=== PATIENT | male | born 1970 | race Caucasian/White ===

== ENCOUNTER 2024-03-10 18:31 | Emergency (ER) | payer SELFPAY ==
--- OUTSIDE RECORDS SUMMARY | 2024-03-10 18:34 | XMS REPORT | Continuity of Care Document ---
Author Name Unknown Address [address] [facility] [address] [place] [address] [facility] thconnect Address [address] [facility] 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 Pcp, Patient Does Not Have A Primary Care Physic hung Kimberly Lundy MD Attending Clinician [phone] KIMBERLY LUNDY Attending Clinician Unavailable MIKE FUENTES Attending Clinician Unav Mike Reyez MD Attending Clinician + ABBI MOHAN Attending Clinician Unavailab Abbi Lopez DO Attending Clinician [phone] Jorge Lao Attending Clinician Unavailable Tim Juarez Attending Clinician Unavailable Tim Juarez Attending Clinician [phone] Jorge Lao Attending Clinician [phone] KIMBERLY LUNDY Admitting Clinician Unavailable ABBI MOHAN Admitting Clinician Unavailab dieudonne Payers Payer Name Policy Type Policy Number Effective Date Expirati on Date Source Allergies, Adverse Reactions, Alerts Allergy Name Allergy Type Status Severity Reaction(s) Onset Date Inactive Date Treating Clinician Comments Source NO KNOWN ALLERGIE S Drug Class Active [facility] Family History Family Member Diagnosis Comments Start Date Stop Date Sour e Father Family history of cancer of colon 2016-11-20 00:00:00 2016-11-20 00:00:00 [facility] Father Diabetes mellitus 2016-11-20 00:00:00 2016-11-20 00:00:00 [facility] Mother Family history of raised blood lipids 2016-11-20 00:00:00 2016-11-20 00:00:00 [facility] Social History Social Habit Start Date Stop Date Quantity Comments Source Alcohol intake 2021-09-22 00:00:00 hard liquor 1 drink occasionally [facility] Health-related behavior (observable entity) 2021-09-22 00:00:00 soda, 32 oz [facility] Tobacco use and exposure 2021-09-22 00:00:00 Cigarette: Age Started: 18, Years Used 25 Quantity Details - Cigarette: 20 Cigarettes per day, Pack Year: 25 [facility] identity Univ [facility] Sex Assigned At 1970 00:00:00 1970 00:00:00 [facility] Smoking Status Start Date Stop Date Source Tobacco smoking consumption unknown [facility] Medications Ordered Medication Name Filled Medication Name Start Date Stop Date Current Medication? Ordering Clinician Indication Dosage Frequency Signature (SIG) Comments Components Source gabapentin 300 mg capsule 06-30 00:00: 00 Yes [id number] 300mg Take 1 capsule by mouth in the morning and 1 capsule at noon and 1 capsule in the evening. [facility] cephALEXin 500 mg capsule 06-30 00:00: 00 07-08 04:59 :00 No [id number] 500mg Take 1 capsule by mouth in the morning and 1 capsule at noon and 1 capsule in the evening. Do all this for 7 days. [facility] ketamine (KETALAR) injection 90 mg 10-22 14:30: 00 10-22 14:50 :00 No 90mg 90 mg, Slow IV Push, ONCE, 1 dose, On Wed10/22/22 at 0930, VALERIE [facility] ketorolac (TORADOL) injection 30 mg 10-22 14:30: 00 10-22 13:44 :00 No 30mg 30 mg, Slow IV Push, ONCE, 1 dose, On Wed10/22/22 at 0930, Routine [facility] FENTanyl PF (SUBLIMAZE (PF)) injection 50 mcg 10-22 14:00: 00 10-22 13:16 :00 No 50ug 50 mcg, Slow IV Push, ONCE, 1 dose, On Mary Jo 10/22/22 at 0900, Routine [facility] DESCOVY 200-25MG TAB 9-06 00:00: 00 No TAKE ONE TABLET BY MOUTH DAILY [Pat Resp = 100 pct;] [facility] Descovy 200 mg-25 mg tablet - 00:00: 00 No 1{table t} Q1D take 1 tablet by oral route every day [Pat Resp = 100 pct;] [facility] Descovy 200 mg-25 mg tablet 1-05 00:00: 00 09-22 00:00 :00 No 1{table t} Q1D take 1 tablet by oral route every day [facility] Vital Signs Vital Name Observation Time Observation Value Comments S ource Oxygen saturation in Arterial blood by Pulse oximetry 2023-07-01 18:56:00 100 /min [facility] acute hospital Systolic blood pressure 2023-07-01 18:56:00 161 mm[Hg] [facility] acute hospital Diastolic blood pressure 2023-07-01 18:56:00 93 mm[Hg] [facility] acute hospital Heart rate 2023-07-01 18:56:00 97 /min [facility] Body temperature 2023-07-01 18:56:00 36.72 Caroline [facility] Respiratory rate 2023-07-01 18:56:00 16 /min [facility] Body height 2023-07-01 18:56:00 190.5 cm [facility] Body weight 2023-07-01 18:56:00 102.059 kg [facility] BMI 2023-07-01 18:56:00 28.12 kg/m2 [facility] Systolic blood pressure 2022-11-17 13:06:00 133 mm[Hg] General acute hospital Diastolic blood pressure 2022-11-17 13:06:00 74 mm[Hg] General acute hospital Heart rate 2022-11-17 13:06:00 76 /min [facility] 2022-11-17 13:06:00 36 Caroline [facility] Body height 2022-11-17 13:06:00 190.5 cm [facility] weight 2022-11-17 13:06:00 101.016 kg [facility] BMI 2022-11-17 13:06:00 27.84 kg/m2 Univ [facility] Systolic blood pressure 2022-11-03 19:18:00 143 mm[Hg] General acute hospital Diastolic blood pressure 2022-11-03 19:18:00 73 mm[Hg] General acute hospital Heart rate 2022-11-03 19:18:00 102 /min [facility] Body temperature 2022-11-03 19:18:00 36.22 Caroline [facility] Body height 2022-11-03 19:18:00 190.5 cm [facility] Body weight 2022-11-03 19:18:00 97.523 kg [facility] BMI 2022-11-03 19:18:00 26.87 kg/m2 Univ [facility] Systolic blood pressure 2022-10-22 16:45:00 145 mm[Hg] General acute hospital Diastolic blood pressure 2022-10-22 16:45:00 80 mm[Hg] General acute hospital Heart rate 2022-10-22 16:45:00 65 /min [facility] Oxygen saturation in Arterial blood by Pulse oximetry 2022-10-22 16:45:00 100 /min General acute hospital Respiratory rate 2022-10-22 16:00:00 12 /min [facility] Body temperature 2022-10-22 15:08:00 36.83 Caroline [facility] Body height 2022-10-22 13:03:00 190.5 cm [facility] Body weight 2022-10-22 13:03:00 95.255 kg [facility] BMI 2022-10-22 13:03:00 26.25 kg/m2 [facility] Body height 2021-09-22 10:41:00 190.50 cm [facility] Body Weight 2021-09-22 10:41:00 110.132 kg [facility] Intravascular Systolic 2021-09-22 10:41:00 113 mm[Hg] [facility] Intravascular Diastolic 2021-09-22 10:41:00 70 mm[Hg] [facility] Heart Rate 2021-09-22 10:41:00 69 /min [facility] Body Temperature 2021-09-22 10:41:00 36.44 Caroline [facility] Respiratory rate 2021-09-22 10:41:00 12 /min [facility] Body mass index 2021-09-22 10:41:00 30.35 kg/m2 [facility] SaO2 % BldA PulseOx 2021-09-22 10:41:00 98 /min [facility] Procedures Procedure Date / Time Performed Performing Clinician Source MAGNESIUM 2023-07-01 20:33:00 Kamron Kimberly [facility] TROPONIN I 2023-07-01 20:33:00 Kamron Kimberly [facility] FREE T4 2023-07-01 20:33:00 [facility] THYROID STIMULATING HORMONE 2023-07-01 20:33[facility]00 [facility] COMP. METABOLIC PANEL ([id number]) 2023-07-01 20:33:00 [facility] CBC WITH DIFF 2023-07-01 20:33:00 Kamron Kimberly [facility] GLYCOSYLATED HEMOGLOBIN (A1C) 2023-07-01 20:33:00 [facility] N-TERMINAL PRO-BNP 2023-07-01 20:33:00 [facility] XR WRIST 3+ VW LEFT 2022-11-17 13:18:14 Mike Fuentes [facility] XR WRIST 3+ VW LEFT 2022-11-03 19:26:49 Mike Fuentes [facility] [place] APPLICATION SHORT ARM SPLINT FOREARM-HAND STATIC 2022-10-22 16:11:31 Abbi Mohan [facility] ED ORTHOPEDIC INJURY TREATMENT - UPPER EXTREMITY 2022-10-22 16:10:30 Abbi Mohan [facility] XR WRIST 3+ VW LEFT 2022-10-22 15:23:45 Yamilet Mohan ra [facility] MODERATE SEDATION 2022-10-22 15:05:03 Abbi Mohan [facility] XR WRIST 3+ VW LEFT 2022-10-22 13:58:00 Yamilet Mohan ra [facility] NOTICE OF PRIVACY PRACTICES 2022-10-22 12:58:35 Doctor Unassigned, [place] [facility] CONSENT/REFUSAL FOR DIAGNOSIS AND TREATMENT 2022-10-22 12:58:08 Doctor Unassigned, [place] [facility] Established Patient Office Visit-Level Three 2021-09-22 00:00:00 [facility] Imm Admin COVID19 30mcg/0.3mL Booster Dosage 2021-09-22 00:00:00 [facility] COVID-19 Pfizer 30 Mcg/0.3mL Dosage 2021-09-22 00:00:00 [facility] Syphilis Test, qualitative 2021-09-22 00:00:00 [facility] HIV-1 antigen(s), HIV-1 and HIV-2 antibodies, single result 2021-09-22 00:00:00 [facility] Basic Metabolic Panel 2021-09-22 00:00:00 [facility] Hepatitis Panel - Acute 2021-09-22 00:00:00 [facility] Chylmd Trach DNA Amp Probe 2021-09-22 00:00:00 [facility] N.Gonorrhea DNA Amp Prob 2021-09-22 00:00:00 [facility] STI Clinic Charge 2020-07-24 00:00:00 [facility] Zithromax 250mg State X4 2020-07-24 00:00:00 [facility] Established Patient Office Visit-Level Three 2020-03-19 00:00:00 [facility] Chylmd Trach DNA Amp Probe 2020-03-19 00:00:00 [facility] N.Gonorrhea DNA Amp Prob 2020-03-19 00:00:00 [facility] Syphilis Test, qualitative 2020-03-19 00:00:00 [facility] HIV-1 Ag/Ab With Reflex 2020-03-19 00:00:00 [facility] Comprehensive Metabolic Panel 2020-03-19 00:00:00 [facility] STI Clinic Charge 2020-01-17 00:00:00 [facility] Zithromax 250mg State X4 2020-01-17 00:00:00 [facility] Rocephin injection per 250mg (state supplied) 2020-01-17 00:00:00 [facility] Syphilis Test, qualitative 2019-12-28 00:00:00 [facility] HIV-1 Ag/Ab With Reflex 2019-12-28 00:00:00 [facility] Comprehensive Metabolic Panel 2019-12-28 00:00:00 [facility] Hepatitis Panel - Acute 2019-12-28 00:00:00 [facility] Established Patient Office Visit-Level Three 2019-12-28 00:00:00 [facility] Established Patient Office Visit-Level Three 2019-07-11 00:00:00 [facility] Urinalysis, Auto W/O Scope 2019-04-12 00:00:00 [facility] Established Patient Office Visit-Level Three 2019-04-12 00:00:00 [facility] Chylmd Trach DNA Amp Probe 2019-04-12 00:00:00 [facility] N.Gonorrhea DNA Amp Prob 2019-04-12 00:00:00 [facility] HIV-1 AG W/HIV-1 & HIV-2 AB 2019-04-12 00:00:00 [facility] Comprehensive Metabolic Panel 2019-04-12 00:00:00 [facility] Established Patient Office Visit-Level Three 2018-12-22 00:00:00 [facility] Urinalysis, Auto W/O Scope 2018-12-22 00:00:00 [facility] HIV-1 AG W/HIV-1 & HIV-2 AB 2018-12-22 00:00:00 [facility] Comprehensive Metabolic Panel 2018-12-22 00:00:00 [facility] Urinalysis, Auto W/O Scope 2018-09-22 00:00:00 [facility] Established Patient Office Visit-Level Three 2018-09-22 00:00:00 [facility] HIV-1 AG W/HIV-1 & HIV-2 AB 2018-09-22 00:00:00 [facility] Comprehensive Metabolic Panel 2018-09-22 00:00:00 [facility] Hepatitis Panel - Acute 2018-09-22 00:00:00 [facility] Urinalysis, Auto W/O Scope 2018-02-28 00:00:00 [facility] Established Patient Office Visit-Level Three 2018-02-28 00:00:00 [facility] HIV-1 AG W/HIV-1 & HIV-2 AB 2018-02-28 00:00:00 [facility] Comprehensive Metabolic Panel 2018-02-28 00:00:00 [facility] Zithromax 250mg State X4 2017-12-06 00:00:00 [facility] Established Patient Office Visit-Level Three 2017-12-06 00:00:00 [facility] HIV-1 AG W/HIV-1 & HIV-2 AB 2017-12-06 00:00:00 [facility] Comprehensive Metabolic Panel 2017-12-06 00:00:00 [facility] Complete Blood Count (CBC) 2017-09-01 00:00:00 [facility] Hepatic Function Panel 2017-09-01 00:00:00 [facility] ASSAY OF GGT 2017-09-01 00:00:00 [facility] LDH (Lactate Dehydrogenase) 2017-09-01 00:00:00 [facility] Urinalysis, Auto W/O Scope 2017-09-01 00:00:00 [facility] Established Patient Office Visit-Level Three 2017-09-01 00:00:00 [facility] Established Patient Office Visit-Level Three 2017-06-28 00:00:00 [facility] Complete Blood Count (CBC) 2017-06-28 00:00:00 [facility] Urinalysis, Auto W/O Scope 2017-06-28 00:00:00 [facility] Established Patient Office Visit-Level Three 2017-02-22 00:00:00 [facility] HIV-1 AG W/HIV-1 & HIV-2 AB 2017-02-22 00:00:00 [facility] Comprehensive Metabolic Panel 2016-12-26 00:00:00 [facility] Urinalysis, Auto W/O Scope 2016-12-26 00:00:00 [facility] Established Patient Office Visit-Level Three 2016-12-26 00:00:00 [facility] Comprehensive Metabolic Panel 2016-11-20 00:00:00 [facility] Urinalysis, Auto W/O Scope 2016-11-20 00:00:00 [facility] New Patient Office Visit-Level Two 2016-11-20 00:00:00 [facility] Encounters Start Date/Time End Date/Time Encounter Type Admission Type Attending [facility] Care Department Encounter ID Source 2023-07-06 00:00:00 2023-07-06 00:00:00 Letter (Out) [facility] [id number] [facility] 2023-07-01 14:01:00 2023-07-01 17:44:00 Emergency Kimberly Lundy [facility] [id number] [id number] [id number] [id number] [facility] 2023-07-01 14:01:00 2023-07-01 17:44:00 Emergency X KIMBERLY LUNDY [facility] ERT [id number] [facility] 2022-11-17 08:12:06 2022-11-17 23:59:00 Outpatient R MIKE FUENTES [facility] [id number] [facility] 2022-11-17 08:10:00 2022-11-17 23:59:00 Hospital Encounter Mike Fuentes Hieu [facility] [id number] [id number] [facility] 2022-11-17 08:45:00 2022-11-17 08:53:46 Office Visit Mike Fuentes [facility] [id number] [id number] [facility] 2022-11-17 00:00:00 2022-11-17 00:00:00 Letter (Out) Latesha Mike [facility] [id number] 4.2.7.2.686 [id number] [facility] 2022-11-03 14:21:01 2022-11-03 23:59:00 Hospital Encounter Mike Fuentes [facility] [id number] [id number] [facility] 2022-11-03 14:00:00 2022-11-03 15:22:43 Outpatient R MIKE FUENTES [facility] [id number] [facility] 2022-11-03 14:00:00 2022-11-03 15:22:43 Office Visit Mike Fuentes [facility] [id number] [id number] 4.2.7.2.686 [id number] [facility] 2022-10-22 08:04:00 2022-10-22 12:00:00 Emergency X ABBI MOHAN [facility] ERT [id number] [facility] 2022-10-22 08:04:00 2022-10-22 12:00:00 Emergency Abbi Mohan [facility] [id number] [id number] [facility] 2022-03-18 00:00:00 2022-03-18 00:00:00 Outpatient Jorge Lao [place] [id number] [facility] 2021-11-18 14:29:00 2021-11-18 14:29:[address] [facility] [id number] 2021-11-18 14:29:00 2021-11-18 14:29:00 Outpatient Delvin Juarezson [place] [id number] [facility] 2021-09-25 07:42:00 2021-09-25 07:42:[address] [facility] [id number] [facility] 2021-09-25 07:42:00 2021-09-25 07:42:00 Outpatient Nilejosiane Tim [place] [id number] [facility] 2021-09-22 10:20:00 2021-09-22 10:20:00 Outpatient Delvin Juarezson [facility] [id number] [facility] 2021-09-22 10:20:00 2021-09-22 10:20:00 Sukumar billingsley Patient Office Visit-Chalo Frazier Nilejosiane Tim [place] [id number] [facility] 2020-07-24 00:00:00 2020-07-24 00:00:00 Outpatient Jorge Lao [place] CHW [id number] [facility] 2020-07-24 00:00:00 2020-07-24 00:00:00 Outpatient Jorge Lao [place] [id number] [facility] 2020-03-29 12:12:00 2020-03-29 12:12:[address] [facility] [id number] [facility] 2020-03-20 07:48:00 2020-03-20 07:48:00 Outpatient Delvin Juarezson [place] W [id number] [facility] 2020-03-19 13:00:00 2020-03-19 13:00:00 Outpatient Larry Tim [facility] [id number] [facility] 2020-03-19 13:00:00 2020-03-19 13:00:00 Establishyashira billingsley Patient Office Visit-Chalo manuel Karin Tim Juarez [place] [id number] [facility] 2020-01-17 00:00:00 2020-01-17 00:00:00 Outpatient Jorge Lao [place] W [id number] [facility] 2020-01-17 00:00:00 2020-01-17 00:00:00 Outpatient Jorge Lao [place] [id number] [facility] 2020-01-01 08:34:00 2020-01-01 08:34:00 Outpatient LarryTim [place] [id number] [facility] 2019-12-29 07:52:00 2019-12-29 07:52:00 Outpatient LarryTim [place] [id number] [facility] 2019-12-28 14:15:00 2019-12-28 14:15:00 Outpatient NileTim joshua [place] [id number] [facility] 2019-12-28 14:15:00 2019-12-28 14:15:00 Establishe d Patient Office Visit-Chalo manuel Karin DowdTim joshua [place] [id number] [facility] 2019-07-11 13:01:00 2019-07-11 13:01:00 Outpatient Tim Juarez [place] [id number] [facility] 2019-07-11 13:01:00 2019-07-11 13:01:00 Sukumar billingsley Patient Office Visit-Tim Abraham [place] [id number] [facility] 2019-04-12 13:00:00 2019-04-12 13:00:00 Outpatient Delvin Juarezson [facility] [id number] [facility] 2019-04-12 13:00:00 2019-04-12 13:00:00 Sukumar billingsley Patient Office Visit-Delvin Abrahamson [place] [id number] [id number] [facility] 2018-12-28 07:29:00 2018-12-28 07:29:00 Outpatient [facility] [id number] [facility] 2018-12-22 13:40:00 2018-12-22 13:40:00 Outpatient Delvin Juarezson [facility] [id number] [facility] 2018-12-22 13:40:00 2018-12-22 13:40:00 Sukumar billingsley Patient Office Visit-Delvin Abrahamson [place] [id number] [facility] 2018-12-05 13:21:00 2018-12-05 13:21:00 Outpatient Larry Tim [facility] [id number] [facility] 2018-09-22 13:00:00 2018-09-22 13:00:00 Outpatient Tim Juarez [facility] [id number] [facility] 2018-09-22 13:00:00 2018-09-22 13:00:00 Establishe d Patient Office Visit-Levyashira l Tim Infante [place] [id number] [facility] 2018-02-28 14:20:00 2018-02-28 14:20:00 Outpatient Tim Juarez [facility] [id number] [facility] 2018-02-28 14:20:00 2018-02-28 14:20:00 Establishe d Patient Office Visit-Tim Abraham [place] [id number] [facility] 2017-12-06 14:00:00 2017-12-06 14:00:00 Outpatient Tim Juarez [facility] [id number] [facility] 2017-12-06 14:00:00 2017-12-06 14:00:00 Establishe d Patient Office Visit-Tim Abraham [place] [id number] [facility] 2017-09-01 13:00:00 2017-09-01 13:00:00 Establishe d Patient Office Visit-Chaitanyayashira Frazier [place] [id number] [facility] 2017-06-28 13:00:00 2017-06-28 13:00:00 Establishe d Patient Office Visit-Chaitanyayashira kaleb Karin [place] [id number] [facility] 2017-02-22 13:40:00 2017-02-22 13:40:00 Establishe d Patient Office Visit-Chalo l Three W [id number]-[id number] [facility] 2016-12-26 13:00:00 2016-12-26 13:00:00 Establishe d Patient Office Visit-Chalo l Three W [id number] [facility] 2016-11-20 14:40:00 2016-11-20 14:40:00 New Patient Office [facility] [place] [id number] [facility] Results Test Description Test Time Test Comments Results Result Co mments Source [facility] [id number] 21:57:56* Test Item Value Reference Range Interpretation Comme nts NT-proBNP (test code = 92830-6) <=125 Lab Interpretation (test cod e = 52462-4) Normal [facility] [id number] 21:51:30* Test Item Value Reference Range Interpretation Comme nts FREE T4 (test code = 9724182935) 1.05 0.78-2.20 Lab Interpretation (test cod e = 34632-7) Normal [facility] WITH [id number] 21:50:38* Test Item Value Reference Range Interpretation Comme nts WBC (test code = 6690-2) 3.64 4.20-10.70 L RBC (test code = 789-8) 4.21 4.26-5.52 L HGB (test code = 718-7) 14.6 g/dL 12.2-16.4 HCT (test code = 4544-3) 41.6 % 38.4-49.3 MCV (test code = 787-2) 98.8 fL 81.7-95.6 H MCH (test code = 785-6) 34.7 pg 26.1-32.7 H MCHC (test code = 786-4) 35.1 g/dL 31.2-35.0 H RDW-SD (test code = 58384-9) 45.7 fL 38.5-51.6 RDW-CV (test code = 788-0) 12.6 % 12.1-15.4 PLT (test code = 777-3) 296 150-328 MPV (test code = 72912-2) 9.0 fL 9.8-13.0 L NRBC/100 WBC (test code = 1864445771) 0.0 0.0-10.0 NRBC x10^3 (test code = 1319879094) See_Comment [Automated messa ge] The system which generated this result transmitted reference range: 10*3/?L. The reference range was not used to interpret this result as normal/abnormal. GRAN MAT (NEUT) % (test code = 770-8) 43.2 % IMM GRAN % (test code = 1839731012) 0.50 % LYMPH % (test code = 736-9) 47.0 % MONO % (test code = 5905-5) 5.5 % EOS % (test code = 713-8) 3.3 % BASO % (test code = 706-2) 0.5 % GRAN MAT x10^3(ANC) (test code = 9818191641) 1.57 10*3/uL 1.99-6.95 L IMM GRAN x10^3 (test code = 7761346651) 0.00-0.06 LYMPH x10^3 (test code = 731-0) 1.71 10*3/uL 1.09-3.23 MONO x10^3 (test code = 742-7) 0.20 10*3/uL 0.36-1.02 L EOS x10^3 (test code = 711-2) 0.12 10*3/uL 0.06-0.53 BASO x10^3 (test code = 704-7) 0.01-0.09 Lab Interpretation (test code = 88361-3) Abnormal [facility] [id number] 21:46:50* Test Item Value Reference Range Interpretation Comme nts TROPONIN I (test code = 7896968672) 0.000 ng/mL <=0.034 EDA (test code = EDA) Reference (Normal) Range (defined by the 99th percentile reference limit): <= 0.034 ng/mL Note: Cardiac troponin begins to rise 3-4 hours after the onset of ischemia. Repeat in 4-6 hours if the sample was drawn within 3-4 hours of the onset of the symptom and found normal. Diagnosis of myocardial injury is made with acute changes in cTn concentrations with at least one serial sample above the 99th percentile upper reference limit (URL), taken together with the patient's clinical presentation. Biotin has been reported to cause a negative bias, interpret results relative to patient's use of biotin. Lab Interpretation (test code = 13505-0) Normal [facility] METABOLIC PANEL (98025)2023-07-01 21:34:48* Test Item Value Reference Range Interpretation Comme nts NA (test code = 6001093826) 141 mmol/L 135-145 K (test code = 5158206850) 4.0 mmol/L 3.5-5.0 CL (test code = 2141188171) 102 mmol/L 98-108 CO2 TOTAL (test code = 9657908406) 30 mmol/L 23-31 AGAP (test code = 4381266330) 9 2-16 BUN (test code = 3413955650) 7 mg/dL 7-23 GLUCOSE (test code = 5890301650) 108 mg/dL 70-110 CREATININE (test code = 2160-0) 0.82 mg/dL 0.60-1.25 TOTAL BILI (test code = 5646452320) 0.5 mg/dL 0.1-1.1 CALCIUM (test code = 5904848784) 9.2 mg/dL 8.6-10.6 T PROTEIN (test code = 6123887181) 7.2 g/dL 6.3-8.2 ALBUMIN (test code = 8100517978) 4.3 g/dL 3.5-5.0 ALK PHOS (test code = 3367473496) 82 U/L 34-122 ALTv (test code = 1742-6) 25 U/L 5-50 AST(SGOT) (test code = 2550163255) 30 U/L 13-40 eGFR (test code = 03665-6) 106.4 mL/min/1.73m2 CKD-EPI eGFR (20 21). Assuming creatinine has been stable day-to-day for at least three months, the eGFR indicates Category G1 (>= 90 mL/min/1.73 m2) [facility]ney[facility]2024-04-18 21:34:48* Test Item Value Reference Range Interpretation Comme nts MAGNESIUM (test code = 7379466693) 2.0 mg/dL 1.7-2.4 Lab Interpretation (test cod e = 03698-9) Normal [facility]ney[facility]cosylated Hemoglobin (A1C)2023-07-01 21:21:29* Test Item Value Reference Range Interpretation Comme nts HGB A1C (test code = 4548-4) 5.5 % 4.0-5.7 EDA (test code = EDA) Reference RangesNormal: <5.7%Prediabetes: 5.7 - 6.4%Diabetes: > 6.5% Lab Interpretation (test code = 25731-1) Normal [facility] Description: RPR, Rfx Qn RPR/Confirm TP 2021-09-25 04:10:00* Test Item Value Reference Range Interpretation Comme nts RPR (test code = 54206-5) Non Reactive Non Reactive [facility] Description: Chlamydia/GC Amplification 2021-09-23 13:47:00* Test Item Value Reference Range Interpretation Comme nts Chlamydia trachomatis, MARIAA ( test code = 13873-4) Negative Negative Neisseria gonorrhoeae, MARIAA ( test code = 80743-2) Negative Negative [facility] Description: HIV 1+2 Ab+HIV1 p24 Ag [Presence] in Serum or Plasma by Dpndhjbmhfm4258-49-37 11:08:00* Test Item Value Reference Range Interpretation Comme nts HIV Ab/p24 Ag Screen (test code = 16080-3) Non Reactive Non Reactive HIV NegativeHIV-1/HIV-2 antibodies and HIV-1 p24 antigen were NOT detected.There is no laboratory evidence of HIV infection. [facility] Description: Basic Metabolic Panel (8) 2021-09-23 08:57:00* Test Item Value Reference Range Interpretation Comme nts Glucose (test code = 2345-7) 97 mg/dL 65-99 BUN (test code = 3094-0) 9 mg/dL 6-24 Creatinine (test code = 2160-0) 1.14 mg/dL 0.76-1.27 eGFR (test code = 01230-0) 79 mL/min/1.73 >59 BUN/Creatinine Ratio (test code = 3097-3) 8 9-20 L Sodium (test code = 2951-2) 143 mmol/L 134-144 Potassium (test code = 2823-3) 4.1 mmol/L 3.5-5.2 Chloride (test code = 2075-0) 103 mmol/L 96-106 Carbon Dioxide, Total (test code = 2027-9) 22 mmol/L 20-29 Calcium (test code = 54301-8) 9.3 mg/dL 8.7-10.2 [facility] Description: Interpretation:2021-09-23 08:39:00 Interpretation:[facility] Description: Acute Hepatitis 2021-09-23 08:36:00* Test Item Value Reference Range Interpretation Comme [facility] Hep A Ab, IgM (test code = 46364-0) Negative Negative HBsAg Screen (test code = 5196-1) Negative Negative Hep B Core Ab, IgM (test cod e = 45911-1) Negative Negative HCV Ab (test code = 32811-6) <0.1 0.0-0.9 [facility]
[2024-03-10] MEDS ORDERED: propofoL 1,000 MG/100 ML VIAL IV ONE ×2 (18:45→22:24)
[2024-03-10 18:53] LABS: Arterial Blood Carboxyhemoglob 2.5 % (0-1.5); Blood Gas Oxyhemoglobin 93.6 % (94-97); Blood Gas THB 14.7 g/dl (12-18); Blood O2 Saturation 97.8 % (92-98.5)
[2024-03-10 18:57] LABS: Absolute Eosinophils 0.2 K/uL (0-0.5); Absolute Lymphocytes (CBC) 1.4 K/uL (0.7-4.9); Absolute Monocytes 0.4 K/uL (0.1-1.3); Absolute Neutrophil 4.1 K/uL (1.8-8.0); Basophils % 0.6 % (0-1.3); Eosinophils % 2.7 % (0-4.4); Hematocrit 41.8 % (39.6-49.0); Lymphocytes % 22.8 % (15.3-44.8); MCHC 33.4 g/dL (32.0-36.0); MCV 92.6 fL (80-100); MPV 7.9 fL (7.6-11.3); Monocytes % 6.2 % (3.3-12.3); Neutrophils % 67.7 % (41.7-73.7); Nucleated Red Blood Cells % 0.1 % (0-0); Platelets 211 thou/uL (152-406); RBC Red Blood Cell Count 4.52 M/uL (4.33-5.43); Red Cell Distribution Width 14.7 % (12.1-15.2)
[2024-03-10 19:00] LABS: PT Prothrombin Time 12.5 SECONDS (9.4-12.5); Protime INR 1.12
[2024-03-10 19:16] LABS: Albumin 3.3 g/dL (3.4-5.0); Albumin/Globulin Ratio 0.9 (1.1-1.8); Anion Gap 10.9 mEq/L (5.0-15.0); Bilirubin Direct 0.2 mg/dL (0-0.2); Bilirubin Indirect, Calculated 0.5 mg/dL (0.2-0.8); Bilirubin Total 0.7 mg/dL (0.2-1.0); Globulin 3.7 g/dL (2.3-3.5); Magnesium 2.1 mg/dL (1.6-2.4); Potassium 3.9 mEq/L (3.5-5.1); Troponin High Sensitivity 3.9 pg/mL (<58.9)
--- NOTE | 2024-03-10 20:31 | RAD REPORT ---
EXAMINATION: ONE VIEW CHEST XR CLINICAL INDICATION: Male, 53 years old.,ams TECHNIQUE: Frontal chest projection is submitted. Examination is limited by patient positioning and t echnique. COMPARISON: No prior exam. FINDINGS: Endotracheal tube tip terminates 6.6 cm above the edie. The lungs are somewhat hypoinflated and drake ar. No pneumothorax or sizable effusion. The heart is normal in size. Mediastinal contours are unremarkable. IMPRESSION: Proximally positioned endotracheal tube within the upper thoracic trachea as above. No acute intratho racic abnormalities.
--- NOTE | 2024-03-10 20:45 | RAD REPORT ---
EXAM: XR Abdomen 1 View (KUB) HISTORY: [facility] MAIN tube placement Bed Name: 3 COMPARISON: None FINDINGS: Single view of the abdomen shows a nonspecific, nonobstructive bowel gas pattern. Enteric t ube has been placed with tip along the stomach body region. No suspicious calcifications are seen. The bones are unremarkable. IMPRESSION: Satisfactory enteric tube positioning.
[2024-03-10 20:56] LABS: Barbiturates NEGATIVE (NEGATIVE); Benzodiazepines POSITIVE (NEGATIVE); Cocaine NEGATIVE (NEGATIVE); METHAMPHETAM NEGATIVE (NEGATIVE); Methadone NEGATIVE (NEGATIVE); Opiates NEGATIVE (NEGATIVE); Phencyclidine NEGATIVE (NEGATIVE); THC Cannibis NEGATIVE (NEGATIVE)
[2024-03-10] MEDS ORDERED: MIDAZOLAM HCL 5 ML ONE (22:07)
--- NOTE | 2024-03-10 22:41 | RAD REPORT ---
EXAM: CT CHEST, ABDOMEN AND PELVIS WITH CONTRAST CLINICAL INDICATION: Male, 53 years old. OVERDOSE, TRAUMA TECHNIQUE: CT chest, abdomen, and pelvis was performed, following the administration of contrast, as per department protocol. Axial, sagittal and coronal reconstructions were obtained. One or more of the following dose reduction techniques were used: Automated exposure control, adjustment of the mA a nd/or kV according to patient size, and/or iterative reconstruction. Unless otherwise specified, incidental findings do not require dedicated imaging follow-up. COMPARISON: No prior exam. FINDINGS: LUNGS AND AIRWAYS: Endotracheal tube terminates within the proximal thoracic trachea. No evidence of airspace or interstitial process. No nodules. PLEURA: Small layering bilateral pleural effusions. No pneumothorax. MEDIASTINUM AND LYMPH NODES: No mediastinal mass or fluid collection. Normal size mediastinal, hilar, and axillary lymph nodes. THORACIC AORTA: Normal caliber and configuration. PULMONARY ARTERIES: Normal caliber. OSSEOUS STRUCTURES AND CHEST WALL: Intact. LIVER: Normal in size and contour. No focal lesion or biliary dilitation. BILIARY SYSTEM: No suspicious abnormalities. PANCREAS: No mass, ductal dilation, or tucker-pancreatic fluid. SPLEEN: Normal size. No focal lesion. ADRENALS: Normal; no mass. KIDNEYS AND URETERS: Normal size and contour. No hydronephrosis. URINARY BLADDER: Decompressed with Miller catheter in place. GASTROINTESTINAL TRACT: Enteric tube in place with tip along the gastric body. No bowel obstruction, free air, significant free fluid or abscess. APPENDIX: No inflammatory changes in region of appendix. LYMPH NODES: No lymphadenopathy. ABDOMINAL AORTA AND OTHER VESSELS: Normal caliber aorta and IVC. MUSCULOSKELETAL: No acute or suspicious osseous abnormality. Bilateral small inguinal hernias containing fat. IMPRESSION: Small bilateral layering pleural effusions. No other acute or significant abnormalities seen in the c hest, abdomen or pelvis. Support tubes/catheters in place. Other findings as above.
--- NOTE | 2024-03-10 22:46 | RAD REPORT ---
EXAM: CT brain without contrast HISTORY: MENTAL STATUS CHANGE COMPARISON: None TECHNIQUE: Multiple contiguous axial images were obtained and a CT of the brain without contrast. Sag ittal and coronal reformats were performed. FINDINGS: No evidence of hydrocephalus, intracranial hemorrhage, or extra-axial fluid collection. The brain is normal in morphology. The calvarium is intact. Patient is intubated. Scattered opacification in the nasal cavity and nasoph arynx. Mastoid air cells are essentially clear. IMPRESSION: No evidence of acute intracranial abnormality. EXAM: CT of the cervical spine without contrast HISTORY: MENTAL STATUS CHANGE COMPARISON: None TECHNIQUE: Multiple contiguous axial images were obtained in a CT of the cervical spine without contr ast. Sagittal and coronal reformats were performed. FINDINGS: The vertebral bodies demonstrate normal height and alignment. No evidence of acute fracture or subluxation.. No degenerative changes are present. No prevertebral soft tissue swelling is seen. The posterior facets are well aligned. Normal alignment of the skull base with the cervical spine is seen. The lung apices are unremarkable. IMPRESSION: No evidence of acute osseous abnormality of the cervical spine.
--- NOTE | 2024-03-10 22:52 | EDPHYS ---
Physician Documentation [facility] Name: Eliezer Max Age: 53 yrs Sex: Male : 1970 Arrival Date: 03/10/2024 Time: 18:31 Bed 3 Private MD: ED Physician Dirk Barone HPI: 03/10 18:39 This 53 yrs old Male presents to ER via EMS with complaints of Drug Abuse. cp 18:39 The patient presents with agitation, confusion. Onset: The symptoms/episode cp began/occurred at an unknown time. Possible causes: reported drug use by friends on scene who called EMS. 18:39 Associated signs and symptoms: Pertinent negatives: fever. Current symptoms: In the emergency department the patient's symptoms have improved. Historical: - Home Meds: 18:36 Unable to obtain [Active]; ld1 - PMHx: 18:36 Unable to Obtain; ld1 - PSHx: 18:36 Unable to Obtain; ld1 - Immunization history:: Adult Immunizations unknown. - Infectious Disease History:: UNK. - Social history:: Smoking status: unknown. ROS: 18:40 Unable to obtain ROS due to patient intubated, cp 18:40 Constitutional: Negative for fever, cp Exam: 18:44 ECG was reviewed by the Attending Physician. cp 18:45 Constitutional: The patient appears non-diaphoretic, non-toxic, well developed, well cp nourished, 18:45 Head/Face: Normocephalic, atraumatic. cp 18:45 Eyes: Periorbital structures: appear normal, Pupils: dilated, bilaterally, Sclera: no appreciated abnormality, Lids and lashes: appear normal, bilaterally, 18:45 ENT: External ear(s): are unremarkable, Nose: is normal, Mouth: Lips: moist, Oral mucosa: moist, 18:45 Neck: C-spine: C-collar placed [employer], 18:45 Chest/axilla: Inspection: normal, 18:45 Cardiovascular: Rate: normal, Rhythm: regular, Edema: is not appreciated, JVD: is not appreciated, 18:45 Respiratory: the patient does not display signs of respiratory distress, 18:45 Abdomen/GI: Inspection: abdomen appears normal, Bowel sounds: active, all quadrants, 18:45 Neuro: unable to test, Vital Signs: 18:27 BP 161 / 93; Pulse 86; Pulse Ox 100% on ETT vent; ld1 18:32 BP 161 / 93; Pulse 76; Resp 9; Pulse Ox 99% on ETT vent; ld1 18:41 Weight 92.08 kg (M); hb 18:42 Weight 92.08 kg; ld1 18:50 BP 141 / 84; Pulse 80; Resp 16; Pulse Ox 97% on ETT vent; ld1 19:14 BP 137 / 84; Pulse 78; Resp 16; Temp 97; Pulse Ox 97% on ETT vent; FiO2 35 %; Pain 0/10;bm8 20:40 BP 128 / 82; Pulse 69; Resp 16; Temp 97; Pulse Ox 98% on ETT vent; FiO2 35 %; Pain 0/10;bm8 21:15 BP 119 / 81; Pulse 67; Resp 16 A; Pulse Ox 100% on ETT vent; dd2 21:45 BP 167 / 112; Pulse 75; Resp 18 A; Pulse Ox 100% on ETT vent; dd2 22:29 BP 142 / 85; Pulse 79; Resp 16; Temp 97; Pulse Ox 100% ; Pain 0/10; bm8 23:00 BP 127 / 83; Pulse 75; Resp 16 A; Pulse Ox 100% on ETT vent; FiO2 35 %; dd2 23:30 BP 120 / 87; Pulse 77; Resp 16 A; Pulse Ox 100% on ETT vent; FiO2 35 %; dd2 03/11 00:00 BP 121 / 88; Pulse 75; Resp 17; Temp 97; Pulse Ox 100% on ETT vent; FiO2 35 %; bm8 00:30 BP 116 / 88; Pulse 75; Resp 16 A; Pulse Ox 100% on ETT vent; FiO2 35 %; dd2 01:00 BP 120 / 86; Pulse 74; Resp 16 A; Pulse Ox 100% on ETT vent; FiO2 35 %; dd2 01:58 BP 118 / 89; Pulse 73; Resp 18; Temp 97.1; Pulse Ox 100% on ETT vent; FiO2 35 %; Pain bm8 0/10; 02:00 BP 118 / 87; Pulse 71; Resp 16 A; Pulse Ox 100% on ETT vent; FiO2 35 %; dd2 04:15 BP 148 / 96; Pulse 78; Resp 16; Temp 97; Pulse Ox 98% on ETT vent; FiO2 35 %; Pain 0/10;bm8 19:14 Pain Scale: Adult bm8 20:40 Pain Scale: Adult bm8 22:29 Pain Scale: Adult bm8 01:58 Pain Scale: Adult bm8 04:15 Pain Scale: Adult bm8 [place] Coma Score: 03/10 19:14 Eye Response: none(1). Modifying Factors: Intubated. Motor Response: none(1). Verbal bm8 Response: none(1). Total: 3. 20:40 Eye Response: none(1). Modifying Factors: Intubated. Motor Response: none(1). Verbal bm8 Response: none(1). Total: 3. 22:29 Eye Response: none(1). Modifying Factors: Intubated. Motor Response: none(1). Verbal bm8 Response: none(1). Total: 3. MDM: 18:36 Medical Screening Exam initiated gordon 22:55 Data reviewed: vital signs, nurses notes, lab test result(s), EKG, radiologic studies, cp CT scan, plain films, I have discussed the patient's presentation/case with the attending Emergency Department Physician; and as a result, I will transfer patient. 22:55 Differential Diagnosis: CVA, electrolyte abnormality, alcohol intoxication, cp intracranial bleed, overdose, seizure, sepsis. I considered the following discharge prescriptions or medication management in the emergency department Medications were administered in the Emergency Department. See MAR. Independent interpretation of the following test(s) in the Emergency Department EKG: See my EKG interpretation above. Historians other than the Patient: EMS: provide hpi. 03/10 18:38 Order name: Basic Metabolic Panel; Complete Time: 20:45 cp 03/10 20:45 Interpretation: Normal except: CL 110; GLUC 134; BUN 6. cp 03/10 18:38 Order name: CBC with Diff; Complete Time: 20:45 cp 03/10 18:38 Order name: LFT's; Complete Time: 20:45 cp 03/10 18:38 Order name: Magnesium; Complete Time: 20:45 cp 03/10 18:38 Order name: PT-INR; Complete Time: 20:45 cp 03/10 18:38 Order name: Troponin HS; Complete Time: 20:45 cp 03/10 18:38 Order name: UDS; Complete Time: 21:41 cp 03/10 18:38 Order name: ABG; Complete Time: 20:45 cp 03/10 18:38 Order name: XRAY Chest (1 view); Complete Time: 20:45 cp 03/10 18:58 Order name: XRAY Abdomen 1 View (KUB); Complete Time: 21:41 kmf 03/10 19:02 Order name: Chest Abdomen Pelvis W Cont; Complete Time: 22:48 EDMS 03/10 22:49 Interpretation: Report reviewed. cp 03/10 19:02 Order name: Head C Spine Mpr Wo Con; Complete Time: 22:48 EDMS 03/10 18:38 Order name: EKG; Complete Time: 18:39 cp 03/10 18:38 Order name: Cardiac monitoring; Complete Time: 18:40 cp 03/10 18:38 Order name: EKG - Nurse/Tech; Complete Time: 18:40 cp 03/10 18:38 Order name: IV Saline Lock; Complete Time: 18:40 cp 03/10 18:38 Order name: Labs collected and sent; Complete Time: 18:58 cp 03/10 18:38 Order name: O2 Per Protocol; Complete Time: 18:39 cp 03/10 18:38 Order name: O2 Sat Monitoring; Complete Time: 18:39 cp 03/10 18:38 Order name: Miller; Complete Time: 18:58 cp EC:44 Rate is 83 beats/min. Rhythm is regular. OH interval is normal. QRS interval is normal. cp QT interval is normal. T waves are Inverted in lead aVR. Interpreted by me. Reviewed by me. Administered Medications: 18:51 Drug: Propofol IV 5 mcg/kg/min IV at calculated rate See Administration Instructions; cm10 Standard concentration 1000 mg / 100 mL; Recommended max rate 50 mcg/kg/min; Titrate 5 mcg/kg/min every 5 minutes to achieve goal (see titration policy); Goal parameter RASS score 0 to -2 Route: IV; Rate: calculated rate; Site: left forearm; 18:56 Follow up: Response: No adverse reaction; Rate change 10 mcg/kg/min ld1 22:28 Follow up: Titrated up to 40 mcg because pt was starting to fight against vent, waking bm8 up and attmepting to remove tube. 03/11 04:30 Follow up: Response: No adverse reaction; IV Status: Infusion continued upon transfer bm8 03/10 22:11 Drug: Midazolam IVP or IV 4 mg IVP once Route: IVP; Site: right forearm; 8 03/11 00:11 Follow up: Response: No adverse reaction bm8 03:16 Drug: Midazolam IVP or IV 4 mg IVP once Route: IVP; Site: right forearm; bm8 04:32 Follow up: Response: No adverse reaction bm8 04:30 Drug: fentaNYL (PF) IVP 100 mcg IVP once Route: IVP; Site: right forearm; bm8 04:32 Follow up: Response: No adverse reaction bm8 04:30 Drug: fentaNYL (PF) IV 25 mcg/kg/h IV at mcg/kg/min See Administration Instructions; bm8 (Standard concentration 500 mcg / 50 mL NS [10 mcg / 1 mL); Recommended max rate 4 mcg/kg/hr; Titrate 0.25 mcg/kg/hr as often as every 3 minutes to achieve goal (see titration policy); Goal parameter RASS score 0 to -2 Route: IV; Rate: mcg/kg/min; Site: right forearm; 04:32 Follow up: Response: No adverse reaction; IV Status: Infusion continued upon transfer bm8 04:50 Drug: Ketamine IVP 100 mg IVP once; ordered by DR. Kellogg. Route: IVP; Site: right 8 forearm; 04:59 Follow up: Response: Marked relief of symptoms; Medication administered at discharge. [facility] Point of Care Testin/27 18:36 121 B[facility] EMS ld1 Ranges: Critical Glucose Levels:Adult <50 mg/dl or >400 mg/dl <40 mg/dl or >180 mg/dl Disposition: 03/11 03:08 I reviewed the patient's care provided by Advanced Practice Provider \T\ agree w/ the sd2 diagnosis \T\ care plan. I personally saw the pt \T\ performed a substantive portion of the visit, incldng all aspects of the (History/Exam/Medical Decision Making). Pt unable to be assigned a bed at [facility] Initiated transfer for [facility] and patient accepted by licensed club manager there, Dr. Dawson. Pt stable for transfer at this time and pending transport.. 03/12 00:58 Critical Care:. cp 01:05 Chart complete. cp Disposition Summary: 03/10/24 22:51 Transfer Ordered Notes: Transfer Location: [facility] cp Reason: Higher level of care cp Condition: Stable cp Problem: new cp Symptoms: have improved cp Accepting Physician: doctor(03/11/24 05:01) dl8 Diagnosis - Altered mental status, unspecified cp Forms: - Medication Reconciliation Form cp - SBAR form cp Critical care time excluding procedures: 00:58 Critical care time: Bedside Care: 5 minutes, Consultation: 25 minutes. Total time: 30 cp minutes Signatures: Dispatcher [employer] EDMS Dirk Barone MD MD cha Page, Corey, PA PA cp Erin Johnson, RN RN ld1 Marilin Kellogg MD MD sd2 Dorie Desai, RN RN cm10 Blas Esparza RN RN bm8 Corrections: (The following items were deleted from the chart) 03/10 18:39 18:39 BASIC METABOLIC PANEL+C.LAB.BRZ ordered. EDMS EDMS 18:39 18:39 CBC+H.LAB.BRZ ordered. EDMS EDMS 18:39 18:39 HEPATIC FUNCTION+C.LAB.BRZ ordered. EDMS EDMS 18:39 18:39 MAGNESIUM+C.LAB.BRZ ordered. EDMS EDMS 18:39 18:39 PROTIME (+INR)+COAG.LAB.BRZ ordered. EDMS EDMS 18:39 18:39 Troponin High Sensitivity+C.LAB.BRZ ordered. EDMS EDMS 18:39 18:39 ETHANOL+C.LAB.BRZ ordered. EDMS EDMS 18:39 18:39 AMMONIA+C.LAB.BRZ ordered. EDMS EDMS 18:39 18:39 URINE DRUG SCREEN+UC.LAB.BRZ ordered. EDMS EDMS 18:39 18:39 Head C Spine CAP W Con+CT.RAD.BRZ ordered. EDMS EDMS 18:39 18:39 Arterial Blood Gas+RC.LAB.BRZ ordered. EDMS EDMS 03/11 04:30 03/10 18:38 Restraint:Violent/Self Destructive (Adult:18yo or >) ordered. cp bm8 03/11 04:36 03/10 22:51 doctor cp bm8 03/11 05:01 04:36 doctor bm8 bm8
--- NOTE | 2024-03-10 22:52 | ER ---
Nurse's Notes [facility] Name: Eliezer Max Age: 53 yrs Sex: Male : 1970 Arrival Date: 03/10/2024 Time: 18:31 Bed 3 Private MD: Diagnosis: Altered mental status, unspecified Presentation: 03/10 18:32 Chief complaint: EMS states: toned out to apartments for overdose. Pt combative and ld1 altered upon arrival. Hallucinations, falling, combative with EMS and PD. EMS administered medications and intubated patient prior to arrival. Friend reports patient taking GHB synthetic PCP. Coronavirus screen: At this time, the client does not indicate any symptoms associated with coronavirus-19. Ebola Screen: No symptoms or risks identified at this time. Risk Assessment: Do you want to hurt yourself or someone else? Patient reports no desire to harm self or others. Onset of symptoms was March 10, 2024 at 18:36. Care prior to arrival: Assisted ventilation, Oral intubation, Medication(s) given: 400mg Ketamine IM, 2 mg Ativan IM NG tube 16F placed by EMS to right nare. 7.5 ET tube placed by EMS. 18:32 Method Of Arrival: EMS: [facility] ld1 18:32 Acuity: ROCIO 1 ld1 19:00 Initial Sepsis Screen: Does the patient meet any 2 criteria? No. Patient's initial ld1 sepsis screen is negative. Does the patient have a suspected source of infection? No. Patient's initial sepsis screen is negative. Triage Assessment: 18:36 General: Appears unkempt, Behavior is unresponsive. Pain: Unable to use pain scale. ld1 Patient is unresponsive. Cardiovascular: Capillary refill < 3 seconds Rhythm is sinus rhythm. Respiratory: Ventilator assessment: ET Tube: 7.5. GI: Abdomen is round non-distended. Derm: Skin temperature is cool. Historical: - Home Meds: 18:36 Unable to obtain [Active]; ld1 - PMHx: 18:36 Unable to Obtain; ld1 - PSHx: 18:36 Unable to Obtain; ld1 - Immunization history:: Adult Immunizations unknown. - Infectious Disease History:: UNK. - Social history:: Smoking status: unknown. Screenin:14 [facility] ED Fall Risk Assessment (Adult) History of falling in the last 3 months, bm8 including since admission No falls in past 3 months (0 pts) Confusion or Disorientation No (0 pts) Intoxicated or Sedated No (0 pts) Impaired Gait No (0 pts) Mobility Assist Device Used No (0 pt) Altered Elimination No (0 pt) Score/Fall Risk Level 0 - 2 = Low Risk Oriented to surroundings, Maintained a safe environment, Educated pt \\T\\ family on fall prevention, incl call for assistance when getting out of bed, Assessed \\T\\ reinforced patient's understanding of fall precautions, Hourly rounding (assess needs \\T\\ fall precautionary measures) done, Used ambulatory aids as needed (educated on \\T\\ assisted with), Used gait belt as appropriate. Abuse screen: Denies threats or abuse. Nutritional screening: No deficits noted. Tuberculosis screening: No symptoms or risk factors identified. Assessment: 18:50 Reassessment: See triage assessment. Pt placed no monitor, sedated at this time. No ld1 need for violent restraints.. General:. 19:14 Reassessment: Patient appears in no apparent distress at this time. Patient and/or bm8 family updated on plan of care and expected duration. Pain level reassessed. Reassessment: pt is sedated with propofol lying supine. OG tube connected to low intermittent suction, Vent settings: AC/VC 16 bpm, 550 tv, 35% fio2, peep 5.0 ET 24 cm at lip. PT NOT IN RESTRAINTS AT THIS TIME. General: Appears in no apparent distress. comfortable, Behavior is calm, cooperative, appropriate for age. Pain: Unable to use pain scale. Patient is intubated. Neuro: Level of Consciousness is sedated with propofol . Cardiovascular: Heart tones S1 S2 present Capillary refill < 3 seconds in bilateral fingers toes Patient's skin is warm and dry. Rhythm is sinus rhythm. Respiratory: Airway is patent via oral intubation Respiratory effort is even, relaxed, Respiratory pattern is regular, symmetrical, Breath sounds are clear bilaterally. GI: Abdomen is flat, non-distended, Oral gastric tube in place, to suction. Site clean. Bowel sounds present X 4 quads. : No signs and/or symptoms were reported regarding the genitourinary system. EENT: No signs and/or symptoms were reported regarding the EENT system. Derm: No signs and/or symptoms reported regarding the dermatologic system. Musculoskeletal: No signs and/or symptoms reported regarding the musculoskeletal system. 20:40 Reassessment: Patient appears in no apparent distress at this time. No changes from bm8 previously documented assessment. Patient and/or family updated on plan of care and expected duration. Pain level reassessed. 22:29 Reassessment: Patient appears in no apparent distress at this time. Patient and/or bm8 family updated on plan of care and expected duration. Pain level reassessed. pt is resting intubated, just returning from [place]. 03/11 00:00 Reassessment: Patient appears in no apparent distress at this time. No changes from bm8 previously documented assessment. Patient and/or family updated on plan of care and expected duration. Pain level reassessed. 01:58 Reassessment: Patient appears in no apparent distress at this time. No changes from bm8 previously documented assessment. Patient and/or family updated on plan of care and expected duration. Pain level reassessed. 03:37 Reassessment: report given to BOSTON Hill at [facility]. bm8 04:15 Reassessment: pt began to wake up, provider informed and new orders received. bm8 04:45 Reassessment: after pt had been loaded onto EMS he once again started waking up. bm8 Provider informed, new orders received and carried out. Overdose: 04:35 [place] Suicide Severity Screening: "In the past month, have you wished you were bm8 or wished you could go to sleep and not wake up?" Patient responds "yes." Based off client's responses, additional C-SSRS screening questions required. pt intubated unable to assess SI/HI concerns. Vital Signs: 03/10 18:27 BP 161 / 93; Pulse 86; Pulse Ox 100% on ETT vent; ld1 18:32 BP 161 / 93; Pulse 76; Resp 9; Pulse Ox 99% on ETT vent; ld1 18:41 Weight 92.08 kg (M); hb 18:42 Weight 92.08 kg; ld1 18:50 BP 141 / 84; Pulse 80; Resp 16; Pulse Ox 97% on ETT vent; ld1 19:14 BP 137 / 84; Pulse 78; Resp 16; Temp 97; Pulse Ox 97% on ETT vent; FiO2 35 %; Pain 0/10;bm8 20:40 BP 128 / 82; Pulse 69; Resp 16; Temp 97; Pulse Ox 98% on ETT vent; FiO2 35 %; Pain 0/10;bm8 21:15 BP 119 / 81; Pulse 67; Resp 16 A; Pulse Ox 100% on ETT vent; dd2 21:45 BP 167 / 112; Pulse 75; Resp 18 A; Pulse Ox 100% on ETT vent; dd2 22:29 BP 142 / 85; Pulse 79; Resp 16; Temp 97; Pulse Ox 100% ; Pain 0/10; bm8 23:00 BP 127 / 83; Pulse 75; Resp 16 A; Pulse Ox 100% on ETT vent; FiO2 35 %; dd2 23:30 BP 120 / 87; Pulse 77; Resp 16 A; Pulse Ox 100% on ETT vent; FiO2 35 %; dd2 03/11 00:00 BP 121 / 88; Pulse 75; Resp 17; Temp 97; Pulse Ox 100% on ETT vent; FiO2 35 %; bm8 00:30 BP 116 / 88; Pulse 75; Resp 16 A; Pulse Ox 100% on ETT vent; FiO2 35 %; dd2 01:00 BP 120 / 86; Pulse 74; Resp 16 A; Pulse Ox 100% on ETT vent; FiO2 35 %; dd2 01:58 BP 118 / 89; Pulse 73; Resp 18; Temp 97.1; Pulse Ox 100% on ETT vent; FiO2 35 %; Pain bm8 0/10; 02:00 BP 118 / 87; Pulse 71; Resp 16 A; Pulse Ox 100% on ETT vent; FiO2 35 %; dd2 04:15 BP 148 / 96; Pulse 78; Resp 16; Temp 97; Pulse Ox 98% on ETT vent; FiO2 35 %; Pain 0/10;bm8 19:14 Pain Scale: Adult bm8 20:40 Pain Scale: Adult bm8 22:29 Pain Scale: Adult bm8 01:58 Pain Scale: Adult bm8 04:15 Pain Scale: Adult bm8 Vitals: 03/10 19:14 Cardiac Rhythm Assessment Sinus rhythm. bm8 Leighton Coma Score: 19:14 Eye Response: none(1). Modifying Factors: Intubated. Motor Response: none(1). Verbal bm8 Response: none(1). Total: 3. 20:40 Eye Response: none(1). Modifying Factors: Intubated. Motor Response: none(1). Verbal bm8 Response: none(1). Total: 3. 22:29 Eye Response: none(1). Modifying Factors: Intubated. Motor Response: none(1). Verbal bm8 Response: none(1). Total: 3. ED Course: 18:32 Patient arrived in ED. ld1 18:36 Dirk Nava PA is PHCP. cp 18:36 Dirk Barone MD is Attending Physician. cp 18:36 Triage completed. ld1 18:36 Arm band placed on right wrist. EKG completed in triage. Results shown to MD. ld1 18:48 XRAY Chest (1 view) In Process Unspecified. EDMS 18:52 Initial lab(s) drawn, by me, sent to lab. EKG done, by ED staff, reviewed by Dirk Nava cm10 LEANNA. NGT: inserted 16 Fr. other OG verified placement of air over stomach. Inserted saline lock: 18 gauge in left forearm, using aseptic technique. Blood collected. Flushed with 10 mL NS Maintain EMS IV. Dressing intact. Good blood return noted. Site clean \\T\\ dry. Gauge \\T\\ site: 18g right forearm. Flushed with 10 mL NS. 19:01 Patient has correct armband on for positive identification. Placed in gown. Bed in low ld1 position. Call light in reach. Side rails up X2. Report given to BOSTON Odonnell. [employer] teacher on. Pulse ox on. NIBP on. Warm blanket given. 19:09 XRAY Abdomen 1 View (KUB) In Process Unspecified. EDMS 19:14 Blas Esparza, RN is Primary Nurse. bm8 19:14 No provider procedures requiring assistance completed. bm8 20:39 Coud inserted, using sterile technique, 18 Fr. Returned clear yellow urine. To gravity bm8 drainage. Urine specimen collected. Patient tolerated well. Response to oxygen therapy: symptoms improved. Assist ventilation with ventilator. 21:57 Chest Abdomen Pelvis W Cont In Process Unspecified. EDMS 21:57 Head C Spine Mpr Wo Con In Process Unspecified. EDMS 22:29 Suctioned orally - moderate amount thick clear sputum. bm8 23:00 initiated transfer with Jesusita Gregory \\T\\ [id number]. km 03/11 00:59 called for update, still waiting for bed placement. km 02:17 called for another update, still waiting for bed placement. kmf 03:14 Per provider initiated transfer with Brooke Chase [facility] \\T\\[id number]. Acceptance to [facility] ICU by f Lino Goff \\T\\ [id number]. [facility] called \\T\\[id number]. 04:15 Provided Education on: need for transfer. bm8 04:15 Patient transferred, IV remains in place. bm8 04:51 Primary Nurse role handed off by Blas Esparza, RN bm8 04:51 Blas Esaprza, RN is Primary Nurse. bm8 Administered Medications: 03/10 18:51 Drug: Propofol IV 5 mcg/kg/min IV at calculated rate See Administration Instructions; cm10 Standard concentration 1000 mg / 100 mL; Recommended max rate 50 mcg/kg/min; Titrate 5 mcg/kg/min every 5 minutes to achieve goal (see titration policy); Goal parameter RASS score 0 to -2 Route: IV; Rate: calculated rate; Site: left forearm; 18:56 Follow up: Response: No adverse reaction; Rate change 10 mcg/kg/min ld1 22:28 Follow up: Titrated up to 40 mcg because pt was starting to fight against vent, waking bm8 up and attmepting to remove tube. 03/11 04:30 Follow up: Response: No adverse reaction; IV Status: Infusion continued upon transfer bm8 03/10 22:11 Drug: Midazolam IVP or IV 4 mg IVP once Route: IVP; Site: right forearm; bm8 03/11 00:11 Follow up: Response: No adverse reaction bm8 03:16 Drug: Midazolam IVP or IV 4 mg IVP once Route: IVP; Site: right forearm; bm8 04:32 Follow up: Response: No adverse reaction bm8 04:30 Drug: fentaNYL (PF) IVP 100 mcg IVP once Route: IVP; Site: right forearm; bm8 04:32 Follow up: Response: No adverse reaction bm8 04:30 Drug: fentaNYL (PF) IV 25 mcg/kg/h IV at mcg/kg/min See Administration Instructions; bm8 (Standard concentration 500 mcg / 50 mL NS [10 mcg / 1 mL); Recommended max rate 4 mcg/kg/hr; Titrate 0.25 mcg/kg/hr as often as every 3 minutes to achieve goal (see titration policy); Goal parameter RASS score 0 to -2 Route: IV; Rate: mcg/kg/min; Site: right forearm; 04:32 Follow up: Response: No adverse reaction; IV Status: Infusion continued upon transfer bm8 04:50 Drug: Ketamine IVP 100 mg IVP once; ordered by DR. Kellogg. Route: IVP; Site: right bm8 forearm; 04:59 Follow up: Response: Marked relief of symptoms; Medication administered at discharge. bm8 Medication: 03/10 19:14 VIS not applicable for this client. bm8 Point of Care Testin:36 121 [facility] ld1 Ranges: Intake: Outcome: 22:51 ER care complete, transfer ordered by MD. landry 03/11 04:15 Transferred by ground EMS to [facility], Transfer form bm8 completed. X-rays sent w/ patient. Condition: stable Instructed on the need for transfer, 04:36 Patient left the ED. bm8 05:01 Patient left the ED. bm8 Signatures: Dispatcher [employer] EDMS Dirk Nava PA PA cp Jessika Dye RN BOSTON Erin Johnson RN RN ld1 Dorie Desai RN RN cm10 Erika Chung [facility] Blas Esparza RN RN bm8 BETITO BANUELOS RN RN dd2 Corrections: (The following items were deleted from the chart) 03/10 19:19 19:14 Reassessment: pt is sedated with propofol lying supine. OG tube connected to low bm8 intermittent suction, Vent settings: AC/VC 16 bpm, 550 tv, 35% fio2, peep 5.0 ET 24 cm at lip bm8 03/11 02:41 00:59 called for update, still awaiting bed placement. kmf kmf
[2024-03-11] MEDS ORDERED: MIDAZOLAM HCL 5 ML ONE (03:09)
[2024-03-11] MEDS ORDERED: propofoL 1,000 MG/100 ML VIAL IV ONE (03:30)
[2024-03-11] MEDS ORDERED: FENTANYL CITR 100 MCG/2 ML ONE (04:15)
[2024-03-11] MEDS ORDERED: NA CHLORIDE 0.9% 50 ML ONE (04:15)
[2024-03-11] MEDS ORDERED: KETAMINE HCL IN 0.9 % NACL 50 MG/5 ML SYRINGE IV ONE (04:48)
[2024-03-11 05:02] VITALS: BP 148/96; TEMP 97; O2SAT 98
--- NOTE | 2024-03-13 11:17 | EKG ---
Test Date: 2024-03-10 Test Time: 18:36:51 [place] Guide: DEMI MEASUREMENT RESULTS: Intervals: Rate: 83 TX: 132 QRSD: 90 QT: 382 QTc: 448 [place]: P: 66 TX: 132 QRS: 32 T: 41 INTERPRETIVE STATEMENTS: Normal sinus rhythm Normal ECG No previous ECG available for comparison Electronically Signed On 03-13-24 11:12:40 THREAT ANALYST by Andrew Ruvalcaba
== END 2024-03-11 05:01 | disposition short-term general hospital (02) ==
LOC: ER 18:31
DX: R41.82 Altered mental status, unspecified (principal); R45.1 Restlessness and agitation
CPT/HCPCS: 36415; 36600; 43753; 70450; 71045; 71260; 72125; 74018; 74177; 80048; 80076; 80307; 82805; 83735; 84484; 85025; 85610; 93005; 94002; 94003; 96365; 96366; 96375; 99291; 99292; J2250; J2704; J3010; Q9967